=== PATIENT | female | born 1965 | race Caucasian/White ===

== ENCOUNTER 2018-06-13 11:57 | Inpatient (IN) | payer SELFPAY ==
[~2018-06-13] VITALS: Ht 149.9 cm; Wt 37.4 kg
--- OUTSIDE RECORDS SUMMARY | 2018-06-13 12:00 | XMS REPORT ---
Author Author [facility] Address Unknown Phone Unavailable Care Team Providers Care Buyer Planner Name Role Phone Unavailable Unavailable Payers Payer Name Policy Type Policy Number Effective Date Expiration Date Problems This patient has no known problems. Allergies, Adverse Reactions, Alerts Allergy Name Allergy Type Status Severity Reaction(s) Onset Date Inactive Date Treating Clinician Comments codeine DA Active 2017-10-29 00:00:00 codeine DA Active SV 2016-03-29 00:00:00 Medications This patient has no known medications. Encounters Start Date/Time End Date/Time Encounter Type Admission Type Attending Clinicians [facility] Facility Care Department Encounter ID 2016-12-29 00:00:00 2016-12-29 00:00:00 Outpatient [facility] [id number]
[2018-06-13] MEDS ORDERED: SODIUM CHLORIDE 0.9% 1000ML 1,000 ML IV STA (12:48)
[2018-06-13] MEDS ORDERED: ONDANSETRON HCL INJ 2MG/ML 2ML 2 MG/ML VIAL IV NR (13:00)
--- NOTE | 2018-06-13 13:03 | NUR ---
RADIOLOGY AT BEDSIDE AT THIS TIME FOR CXR.
[2018-06-13 13:30] LABS: BASOPHILS # (AUTO) 0.1 (0.0-0.1); BASOPHILS % 1.2 % (0.0-1.0); EOSINOPHILS # (AUTO) 0.1 (0.0-0.4); EOSINOPHILS % 1.4 % (0.0-6.0); HEMATOCRIT 41.9 % (34.2-44.1); HEMOGLOBIN 15.4 g/dL (12.0-16.0); LYMPHOCYTES % 16.5 % (18.0-39.1); MEAN CORPUSCULAR HEMOGLOBIN 35.7 pg (28-32); MEAN CORPUSCULAR HGB CONC 36.8 g/dL (31-35); MEAN CORPUSCULAR VOLUME 97.2 fL (81-99); MONOCYTES # (AUTO) 1.1 (0.2-0.8); MONOCYTES % 18.2 % (4.4-11.3); NEUTROPHILS # (AUTO) 3.6 (2.1-6.9); NEUTROPHILS % 62.4 % (38.7-80.0); PLATELET COUNT 142 x10e3/uL (140-360); RED BLOOD COUNT 4.31 x10e6/uL (3.6-5.1); RED CELL DISTRIBUTION WIDTH 17.3 % (11.7-14.4)
[2018-06-13 13:33] LABS: INR 1.03
[2018-06-13 13:34] LABS: PARTIAL THROMBOPLASTIN TIME 31.9 seconds (23.8-35.5)
--- NOTE | 2018-06-13 13:39 | Diagnostic Imaging Report ---
EXAMINATION: CHEST SINGLE (PORTABLE) INDICATION: Abdominal pain. COMPARISON: None FINDINGS: TUBES and LINES: None. LUNGS: Lungs are well inflated. Mild patchy left basilar opacity, likely atelectasis. There is no evidence of pneumonia or pulmonary edema. PLEURA: No pleural effusion or pneumothorax. HEART AND MEDIASTINUM: The cardiomediastinal silhouette is unremarkable. BONES AND SOFT TISSUES: No acute osseous abnormality. UPPER ABDOMEN: No free air under the diaphragm. IMPRESSION: No acute radiographic abnormality. Signed by: Dr. Praveena Palmer MD on 06/13/2018 1:35 PM
[2018-06-13 13:42] LABS: AMPHETAMINES SCREEN,URINE NEGATIVE (NEGATIVE); BENZODIAZEPINES SCREEN,URINE NEGATIVE (NEGATIVE); PHENCYCLIDINE SCREEN,URINE NEGATIVE (NEGATIVE)
[2018-06-13 13:43] LABS: CLARITY,URINE CLOUDY (CLEAR); COLOR,URINE ORANGE (YELLOW)
[2018-06-13 13:44] LABS: BILIRUBIN,URINE 3+ (NEGATIVE); KETONES,URINE NEGATIVE (NEGATIVE); LEUKOCYTE ESTERASE ,URINE TRACE (NEGATIVE); NITRITE,URINE POSITIVE (NEGATIVE); PROTEIN,URINE DIPSTICK NEGATIVE (NEGATIVE); URINE UROBILINOGEN 4 mg/dL (0.2 - 1)
[2018-06-13 13:47] LABS: ALANINE AMINOTRANSFERASE 88 IU/L (0-55); ALBUMIN 3.3 g/dL (3.5-5.0); ALBUMIN/GLOBULIN RATIO 1.1 (0.8-2.0); ALKALINE PHOSPHATASE 159 IU/L (40-150); AMYLASE 56 U/L (25-125); ANION GAP 15.2 mmol/L (8-16); BLOOD UREA NITROGEN 5 mg/dL (7-26); BUN/CREATININE RATIO 8 (6-25); CALCIUM 9.9 mg/dL (8.4-10.2); CARBON DIOXIDE 28 mmol/L (22-29); CHLORIDE 97 mmol/L (98-107); CREATINE KINASE 21 IU/L (29-168); CREATININE, SERUM 0.65 mg/dL (0.57-1.11); EST GLOMERULAR FILTRATION RATE > 60 ML/MIN (60-); GLUCOSE 94 mg/dL (74-118); LIPASE 75 U/L (8-78); MAGNESIUM 1.4 MG/DL (1.3-2.1); SODIUM 138 mmol/L (136-145)
[2018-06-13 13:48] LABS: BACTERIA,URINE MANY /HPF; EPITHELIAL CELLS,URINE MODERATE /LPF; RBC,URINE 0-5 /HPF (0-5); WBC,URINE (MAN) 21-50 /HPF (0-5)
[2018-06-13 13:52] LABS: POTASSIUM 2.2 mmol/L (3.5-5.1)
[2018-06-13] MEDS ORDERED: POTASSIUM CHLORIDE 20 MEQ TAB CR PO NR (14:00)
[2018-06-13 14:28] LABS: ACETAMINOPHEN < 3 ug/mL (10-30); SALICYLATE < 5.0 mg/dL (0-30)
[2018-06-13] MEDS ORDERED: POTASSIUM CHLORIDE 20MEQ/15ML UDC PO NR (14:45)
[2018-06-13] MEDS: PIPER-TAZ 3.375 GM 50 ML IV SCH ×2 (15:00→22:06)
--- NOTE | 2018-06-13 15:07 | Diagnostic Imaging Report ---
EXAM: CT Abdomen and Pelvis WITH contrast INDICATION: Jaundice, right upper quadrant abdominal pain. COMPARISON: None. TECHNIQUE: Abdomen and pelvis were scanned utilizing a multidetector helical scanner from the lung base to the pubic symphysis after administration of IV contrast. Coronal and sagittal reformations were obtained. Routine protocol was performed. Scan was performed when during portal venous phase. IV CONTRAST: 100 cc of Isovue-370. ORAL CONTRAST: Water COMPLICATIONS: None RADIATION DOSE: Total DLP: 164.3 mGy*cm Dose modulation, iterative reconstruction, and/or weight based adjustment of the mA/kV was utilized to reduce the radiation dose to as low as reasonably achievable. FINDINGS: LINES and TUBES: None. LOWER THORAX: Severe emphysematous changes at the lung bases. HEPATOBILIARY: Severe diffuse hepatic steatosis. Hepatomegaly. No evidence of focal lesion. No biliary ductal dilation. GALLBLADDER: No radio-opaque stones or sludge. No wall thickening. SPLEEN: No splenomegaly. PANCREAS: No focal masses or ductal dilatation. ADRENALS: No adrenal nodules KIDNEYS/URETERS: Kidneys enhance symmetrically. No evidence of hydronephrosis, solid mass, or stone. GI TRACT: No evidence of wall thickening or distension. Appendix is unremarkable in appearance and abuts the inferior margin of the liver (coronal series 301, image 32; axial series 2, image 41). PELVIC ORGANS/BLADDER: Status post hysterectomy. LYMPH NODES: No lymphadenopathy. VESSELS: There is a large splenorenal shunt. Scattered atherosclerotic changes in the abdominal aorta and branch vessels. PERITONEUM / RETROPERITONEUM: No free air or fluid. BONES AND SOFT TISSUES: Unremarkable. CONCLUSION: Hepatomegaly with severe diffuse hepatic steatosis. Large splenorenal shunt, which may be seen in portal hypertension. Severe emphysematous changes of the lung bases. Status post hysterectomy. Signed by: Dr. Praveena Palmer MD on 06/13/2018 3:03 PM
[2018-06-13] MEDS ORDERED: SODIUM CHLORIDE 0.9% 50ML 50 ML ONE (15:09)
[2018-06-13] MEDS ORDERED: IOPAMIDOL 370 MG/ML 200 ML INFUS..BTL INJ ONE (15:09)
[2018-06-13] MEDS ORDERED: KCL 20MEQ/.9 SOD CHL 1,000 ML IV ONE (16:00)
[2018-06-13] MEDS: POTASSIUM CHLORIDE 10MEQ/100ML 100 ML IV SCH ×4 (16:14→19:09)
[2018-06-13 20:35] VITALS: BP 103/68
[2018-06-13 21:00] VITALS: BP 103/68
[2018-06-13 21:24] VITALS: BP 103/68
--- NOTE | 2018-06-13 21:38 | Diagnostic Imaging Report ---
MRCP CPT code: 69811 History: Acute jaundice, elevated transaminases Comparison: CT abdomen/pelvis 06/13/2018. Technique: Multiplanar, multisequence images of the abdomen were obtained per MRCP protocol. 3D volume rendered reformation images of the biliary tree were performed. No intravenous gadolinium was administered. Findings: Several pulse sequences are motion degraded. Biliary tree: No intrahepatic biliary ductal dilatation. Common bile duct measures 4 mm in diameter and tapers as it approaches the ampulla. No beading or narrowing. No intraluminal filling defect. The cystic duct is poorly visualized. Pancreas duct: Normal in diameter throughout its course and is normal in morphology. Liver: Severe steatosis. Calculated hepatic fat percentage is 34.3%. No evidence of mass. The right lobe measures 18 cm in length. Liver capsule is smooth. Gallbladder: Present. No evidence of gallstone or mural thickening. No pericholecystic inflammation. Spleen: Normal size and signal. No mass. Pancreas: Normal T1 and T2 signal without mass. Kidneys: No hydronephrosis. No cortical mass. Adrenal glands: No mass Lymph nodes: No enlarged abdominal or retroperitoneal lymph nodes. Vasculature: Portal vein is normal in diameter. Large splenorenal shunt in the left upper quadrant. Bowel: Stomach and visualized portions of the small bowel and large bowel are normal in diameter with normal wall thickness. Lung bases: Clear. Bones: Normal marrow signal. No focal osseous lesions. Soft tissues: Unremarkable IMPRESSION: 1. Severe steatosis. Steatohepatitis is suspected. Hepatomegaly. No MRI evidence of cirrhosis. No hepatic mass. 2. No biliary ductal dilatation. No pancreas ductal dilatation. No pancreas mass. 3. Normal-sized spleen with large splenorenal shunt. No evidence of portal hypertension on provided images. 4. No gallbladder abnormalities. Thank you for your referral. Signed by: Dr. Fallon Cordova MD on 06/13/2018 9:35 PM
--- NOTE | 2018-06-13 22:10 | NUR ---
Report received from ER nurse Rogelio. Patient admitted in unit by stretcher. Patient alert/oriented x3. Denied pain and no SOB. Respiration even and unlabored. Head to toe assessment completed. No skin breakdown noted. Family in the room. Parent instructed to call fro help as needed. Bed in lower position,locked, Call marin within reach. Will continue to monitor.
[2018-06-14] VITALS (8 sets, daily range): BP systolic 91–117; BP diastolic 61–79
[2018-06-14] MEDS: PIPER-TAZ 3.375 GM 50 ML IV SCH ×4 (03:20→20:34)
[2018-06-14 05:30] LABS: ALANINE AMINOTRANSFERASE 65 IU/L (0-55); ALBUMIN 2.2 g/dL (3.5-5.0); ALKALINE PHOSPHATASE 116 IU/L (40-150); ANION GAP 13.1 mmol/L (8-16); BLOOD UREA NITROGEN < 5 mg/dL (7-26); CALCIUM 8.1 mg/dL (8.4-10.2); CARBON DIOXIDE 22 mmol/L (22-29); CHLORIDE 109 mmol/L (98-107); CREATININE, SERUM 0.59 mg/dL (0.57-1.11); EST GLOMERULAR FILTRATION RATE > 60 ML/MIN (60-); GLUCOSE 73 mg/dL (74-118); LIPASE 45 U/L (8-78); POTASSIUM 3.1 mmol/L (3.5-5.1); SODIUM 141 mmol/L (136-145)
[2018-06-14 05:37] LABS: BUN/CREATININE RATIO 8 (6-25)
[2018-06-14 06:42] LABS: BASOPHILS # (AUTO) 0.1 (0.0-0.1); BASOPHILS % 1.3 % (0.0-1.0); EOSINOPHILS # (AUTO) 0.1 (0.0-0.4); EOSINOPHILS % 2.1 % (0.0-6.0); HEMATOCRIT 34.2 % (34.2-44.1); HEMOGLOBIN 12.4 g/dL (12.0-16.0); LYMPHOCYTES # (AUTO) 1.1 (1.0-3.2); LYMPHOCYTES % 20.8 % (18.0-39.1); MEAN CORPUSCULAR HEMOGLOBIN 36.4 pg (28-32); MEAN CORPUSCULAR HGB CONC 36.3 g/dL (31-35); MEAN CORPUSCULAR VOLUME 100.3 fL (81-99); MONOCYTES # (AUTO) 0.9 (0.2-0.8); MONOCYTES % 17.2 % (4.4-11.3); NEUTROPHILS # (AUTO) 3.1 (2.1-6.9); NEUTROPHILS % 58.2 % (38.7-80.0); PLATELET COUNT 123 x10e3/uL (140-360); RED BLOOD COUNT 3.41 x10e6/uL (3.6-5.1); RED CELL DISTRIBUTION WIDTH 18.4 % (11.7-14.4)
[2018-06-14] MEDS ORDERED: POTASSIUM CHLORIDE 20 MEQ TAB CR PO NR ×2 (07:15→14:00)
--- NOTE | 2018-06-14 08:00 | NUR ---
Head: Atraumatic, normocephalic EENT: clear/ no obstruction, no drainage, throat patent Cardiac: RRR, S1, S2 Normal, no S3, S4. Resp: LS with scattered bilateral wheezing, RR uneven Abd: BS dim, abd round, Soft, Non-distended, non tender. Extremities: DP pulse faint +1 and posterior tibialis pulse faint +1 Skin: Warm, moist, no lesions, no wounds, jaundiced : Unremarkable, Able to make needs known, call light within reach, will monitor
[2018-06-14] MEDS ORDERED: POTASSIUM CHLORIDE 20 MEQ TAB CR PO SCH (10:00)
--- NOTE | 2018-06-14 11:41 | NUR ---
Orders in place to upgrade diet by Dr. Thierry Rubio from clears to Full liquid, will monitor
--- NOTE | 2018-06-14 14:00 | History and Physical ---
CHIEF COMPLAINT: Jaundice. 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 The patient's who is at bedside reports that she has been very weak over the last several days, noticed that her skin was very yellow in color as well as her eyes and brought her in for further evaluation. On further investigation, the patient apparently was a chronic alcoholic, who was drinking several alcoholic drinks daily for several years, but of note over the last two years she states that she is a social drinker only drinks mainly on holidays. She denies having any recent drink over the last several months. The patient denies any abdominal pain, nausea, or vomiting. Does endorse some weight loss at home. The patient is seen at bedside, currently doing well with no other issues at this time. GI has been consulted for further evaluation. The patient's total bilirubin level was elevated. REVIEW OF SYSTEMS: Pertinent positives: Jaundice, scleral icterus. Pertinent negatives: Denies any chest pain, palpitation, nausea, vomiting, diarrhea, dysuria, hematuria, frequency, urgency, lightheadedness, dizziness, abdominal pain, headaches, shortness of breath, cough, congestion, fever, or any other complaints. The rest of the 14-point review of systems have been reviewed with the patient and are negative. ALLERGIES: CODEINE. HOME MEDICATIONS: None. PAST MEDICAL HISTORY: Chronic alcoholic and drinks alcohol daily, of note social drinker now over the last two years is what she reports, last drink was back in February. PAST SURGICAL HISTORY: Reports none. FAMILY HISTORY: Hypertension and diabetes. SOCIAL HISTORY: Denies drugs or any current smoking, but is a chronic alcoholic, of note last drink was back in February, but she used to drink daily for several years. PHYSICAL EXAMINATION: VITAL SIGNS: Temperature is 99.1, pulse 84, respiratory rate 17, blood pressure 108/76, and pulse ox 99% on room air. GENERAL: Not in acute distress. Alert and oriented x3. Cooperative on examination. She is very jaundiced on examination. HEENT: Head is normocephalic and atraumatic. Eyes; pupils are equal, round, and reactive to light bilaterally. Extraocular movements are intact bilaterally. Throat, no evidence of erythema or exudates in the posterior pharynx. Has poor dentition. NECK: Supple. Good range of motion. PULMONARY: Clear to auscultation bilaterally. No wheezing, no rales, no rhonchi, no crackles appreciated. CARDIOVASCULAR: Positive S1, S2. No murmurs, rubs, or gallops appreciated. ABDOMEN: Soft, nondistended, and nontender to palpation. Bowel sounds present. She is very jaundiced on examination. MUSCULOSKELETAL: Strength is 5/5 throughout. No evidence of any muscle deficits on examination. No weakness appreciated. NEUROLOGICAL: Cranial nerves 2 through 12 grossly intact. No evidence of any neurological deficits on exam. SKIN: Intact. Warm to touch. Good cap refill. PSYCHIATRIC: Normal affect and mood. EXTREMITIES: No edema. Good range of motion throughout. LAB FINDINGS: Show white count is 5.2, hemoglobin 12.4, hematocrit is 34, and platelets of 123. Coagulation; PT 14, INR 1, PTT 31.9. Chemistry; sodium 141, potassium 3.1, chloride 109, bicarb 22, anion gap of 13, BUN is less than 5, creatinine is 0.59, glucose is 73. Lactic acid 14, but normal at this facility. Total bilirubin on admission was 20.6, now 17.1; AST 171, now 133; ALT 88, now 65; alkaline phosphatase 160. Troponin was negative. Total bilirubin is 4.5. Albumin was 2.2, lipase is 45, amylase is 56. Urinalysis has a 3+ bilirubin, nitrite positive, rbc 0-5, wbc 21-50. Toxicology screen; acetaminophen negative, salicylate negative. Urine drug screen was negative. Hepatitis panel is pending. MICROBIOLOGY: Blood and urine cultures are pending. IMAGING STUDIES: MRCP performed shows severe steatosis with steatohepatitis suspected. Hepatomegaly. No biliary ductal dilatation. No pancreatic ductal dilatation. No pancreas mass. Normal-sized spleen with large splenorenal shunt. No evidence of portal hypertension on provided images. No gallbladder abnormality. Chest x-ray was found to be negative. CT abdomen and pelvis consistent with hepatomegaly with severe diffuse hepatic steatosis with large splenorenal shunt likely to be portal hypertension. Severe emphysematous changes at the lung bases. Status post hysterectomy. IMPRESSION: 1. Jaundice with elevated total bilirubin likely due to alcohol abuse. 2. Hepatic steatosis likely secondary to alcohol abuse. 3. Probable urinary tract infection. 4. Hypokalemia. PLAN: Imaging studies were performed, shows consistent with hepatic steatosis, but no evidence of any obstruction. It seems that the patient's underlying jaundice is from alcohol abuse. Hepatitis panel is pending, GI was consulted. Potassium was aggressively replaced. She is on IV antibiotics for UTI and we will monitor urine culture. We are going to resume same home medications. The patient reports that she is very noncompliant as well as her reports that she is noncompliant with any medical care. She cannot recall the last time she saw a physician except for history of a hysterectomy that was performed more than a year and a half ago. We will monitor for any evidence of any alcohol withdrawal, but endorses her last alcohol drink was back in February of this year. I will put her on Lovenox for DVT prophylaxis. Get a.m. labs. MD CARLEEN Farris/URI /[id number]
--- NOTE | 2018-06-14 16:02 | NUR ---
GAVE PACKET OF INFORMATION WITH COMMUNITY RESOURCES FOR ASSISTANCE WITH LOW TO NO INCOME TO PATIENT. RESOURCES THAT PATIENT MAY BE ABLE TO FOLLOW UP UPON DISCHARGE. PT EDUCATED ON EACH RESOURCE AND UNDERSTANDING HOW TO FOLLOW UP TO SEE IF QUALIFIED FOR EACH RESOURCE.
[2018-06-14] MEDS: ENOXAPARIN 30 MG/0.3 ML SYR SC SCH (17:06)
--- NOTE | 2018-06-14 17:06 | NUR ---
Nutrition Intervention Note RD Recommendation(s) for Physician: - When medically feasible ADAT to AMBROSE - Recommend Ensure Enlive BID when diet advanced - Recommend MVI with mineral once daily - Pt meets criteria for moderate protein calorie malnutrition Plan of Care: RD following, monitoring for tolerance and adequacy Nutrition reason for involvement: Nutrition Risk Trigger- MST score RD Assessment 06/14: 53 YOF admitted for hypokalemia, jaundice, UTI, and suspected hepatic steatosis with hx of chronic ETOH use and resected uterine tumor with no follow up care post op per MD notes. Pt seen today per MST score. Pt reports that she has never been a big eater and that she is prescribed to drink Boost TID at home, but hasn't been drinking more than 1 per day infrequently. Pt denies chronic N/V/C/D. Pt reports UBW of 85# 6 mo ago, pt with 17% wt loss in 6 mo. Pt receptive to Ensure Enlive when diet advanced, flavor preferences noted in [employer]. Will monitor and continue to follow. Principal Problems/Diagnoses: hypokalemia, jaundice, UTI, and suspected hepatic steatosis PMH:chronic ETOH use and resected uterine tumor GI:LBM 06/14 Skin:intact, jaundice Labs: 06/14: Na 141, K 3.1, BUN <5, Cr 0.59, Gluc 73 Meds: abx, k-dur, zofran Ht: 59 in Wt: 70 lb BMI: 14.1 IBW: 95 lb Malnutrition Evaluation (06/14/18) The patient meets criteria for MODERATE protein-calorie malnutrition. Energy intake: <75% of estimated energy requirements for >3 months Weight loss: >10% in 6 months (Chronic) Fat loss: Mild Muscle loss: Mild Supporting Evidence: Fluid accumulation: None Functional status: Not assessed Nutrition Prescription (Diet Order): Clear Liquids Estimated Nutritional Needs: 955-1114 calories/day (30-35 kcal/kg CBW) 32-48 g protein/day (1-1.5 g pro/kg CBW) Diet Adequacy: Not meeting calorie needs, Not meeting protein needs Diet Education Needs Assessment: Diet education not indicated, patient on temporary/transition diet. Nutrition Care Level: Moderate Nutrition Diagnosis: PES Goal: Patient will meet 75-100% of estimated needs by follow up Progress: N/A Interventions: Fluid, fiber modified diet, Commercial beverage, Collaboration with other providers Monitoring/Evaluation: Total energy intake, Total protein intake, Modified diet, Liquid supplement, Weight change Signed: Lida Singleton RD, LD, CNSC
--- NOTE | 2018-06-14 18:23 | NUR ---
Patient had full liquid diet and tolerated well, no c/o nausea, vomiting, and VSS, denies any pains, will monitor.
[2018-06-15] VITALS (9 sets, daily range): BP systolic 90–121; BP diastolic 61–81
--- NOTE | 2018-06-15 00:57 | NUR ---
round the patient at this time.
[2018-06-15] MEDS: PIPER-TAZ 3.375 GM 50 ML IV SCH (03:25)
[2018-06-15 05:47] LABS: BASOPHILS # (AUTO) 0.1 (0.0-0.1); BASOPHILS % 1.1 % (0.0-1.0); EOSINOPHILS # (AUTO) 0.1 (0.0-0.4); EOSINOPHILS % 2.6 % (0.0-6.0); HEMATOCRIT 34.6 % (34.2-44.1); HEMOGLOBIN 12.6 g/dL (12.0-16.0); LYMPHOCYTES # (AUTO) 0.9 (1.0-3.2); MEAN CORPUSCULAR HEMOGLOBIN 36.7 pg (28-32); MEAN CORPUSCULAR HGB CONC 36.4 g/dL (31-35); MEAN CORPUSCULAR VOLUME 100.9 fL (81-99); MONOCYTES % 19.3 % (4.4-11.3); NEUTROPHILS # (AUTO) 3.3 (2.1-6.9); NEUTROPHILS % 60.4 % (38.7-80.0); PLATELET COUNT 138 x10e3/uL (140-360); RED BLOOD COUNT 3.43 x10e6/uL (3.6-5.1); RED CELL DISTRIBUTION WIDTH 18.8 % (11.7-14.4)
[2018-06-15 06:15] LABS: ALANINE AMINOTRANSFERASE 69 IU/L (0-55); ALBUMIN 2.3 g/dL (3.5-5.0); ALKALINE PHOSPHATASE 119 IU/L (40-150); ANION GAP 9.5 mmol/L (8-16); BLOOD UREA NITROGEN < 5 mg/dL (7-26); CARBON DIOXIDE 29 mmol/L (22-29); CHLORIDE 101 mmol/L (98-107); CREATININE, SERUM 0.65 mg/dL (0.57-1.11); EST GLOMERULAR FILTRATION RATE > 60 ML/MIN (60-); GLUCOSE 81 mg/dL (74-118); SODIUM 135 mmol/L (136-145)
[2018-06-15 06:16] LABS: BUN/CREATININE RATIO 8 (6-25); POTASSIUM 4.5 mmol/L (3.5-5.1)
[2018-06-15 07:02] LABS: FOLATE 5.8 ng/mL (7.0-15.4)
--- NOTE | 2018-06-15 07:06 | NUR ---
Report given to AM RN, walking round done.
[2018-06-15] MEDS: CEFTRIAXONE SOD 1 GM/NS 50 ML 50 ML IV SCH (09:50)
--- NOTE | 2018-06-15 10:08 | NUR ---
Rounds by attending and patient started on steroids, Labs still elevated and some more labs ordered by GI, will monitor
[2018-06-15] MEDS: METHYLPREDNISOLONE SOD SUCC 40 MG/ML VIAL 1ML IV SCH ×2 (11:44→16:41)
--- NOTE | 2018-06-15 13:12 | NUR ---
Orders per DR. Marti to transfer patient to [facility] floor and orders for Tele in place
--- NOTE | 2018-06-15 13:20 | Progress Note ---
DATE: 06/15/2018 Medicine Progress Note SUBJECTIVE: The patient's was increased. She looks more jaundiced today on examination. She is tolerating diet well. LABORATORY DATA: Lab findings show white count 5.3, hemoglobin 12.3, hematocrit is 35, platelets of 138. Chemistry; sodium 135, potassium 4.5, chloride 101, bicarb 29, anion gap of 9.5, BUN is 5, creatinine 0.65, glucose 81, calcium is 9, total bilirubin went up to 22.7, direct bilirubin is 7.8. LFTs were elevated. Total protein 4.7. Albumin 2.3. Alpha-fetoprotein is pending. Folate level 5.8, vitamin B12 759. MICROBIOLOGY: Urine culture positive for E coli and enterococcus. Blood cultures, no growth to-date. IMAGING STUDIES: None. PHYSICAL EXAMINATION: VITAL SIGNS: Temperature 98.8, pulse 89, respiratory rate is 16, blood pressure 106/70, pulse ox 100% on room air. GENERAL: Not in acute distress. Alert and oriented x3. Cooperative on examination. The patient was jaundiced. HEENT: Head is normocephalic, atraumatic. Eyes, pupils are equal, round, and reactive to light bilaterally. Extraocular movements are intact bilaterally. Throat, no evidence of any erythema or exudates in the posterior pharynx. Has poor dentition. NECK: Supple. Good range of motion. PULMONARY: Clear to auscultation bilaterally. No wheezing, no rales, no rhonchi, and no crackles appreciated. CARDIOVASCULAR: Positive S1, S2. No murmurs, rubs, or gallops appreciated. ABDOMEN: Soft, nondistended, and nontender to palpation. Bowel sounds present. MUSCULOSKELETAL: Strength is 5/5 throughout. No evidence of any muscle deficits on examination. No weakness appreciated. NEUROLOGIC: Cranial nerves 2 through 12 are grossly intact. No evidence of any neurological deficits on exam. SKIN: Intact. Warm to touch. Good cap refill. PSYCHIATRIC: Normal affect and mood. EXTREMITIES: No edema. Good range of motion throughout. IMPRESSION: 1. Jaundice with elevated total bilirubin, likely secondary to alcohol abuse. 2. Hepatic steatosis likely secondary to alcohol abuse. 3. Urinary tract infection. 4. Hypokalemia, resolved. PLAN: At this time, her total bilirubin has increased. We will start her on Solu-Medrol 40 mg IV q.8 hours. Consult with GI. The patient is tolerating diet well. Change antibiotics Zosyn to IV Rocephin, that is now back with sensitivities. Lovenox for DVT prophylaxis. Discussed drinking cessation. Get a.m. labs. We will monitor very closely. MD CARLEEN Farris/URI /[id number]
--- NOTE | 2018-06-15 13:36 | NUR ---
Received patient via wheelchair from [facility]. AAOX3 to time, person, place. Respirations even and unlabored. Telemetry #10 SR 75. Oriented patient to room. Instructed to use call light for assistance. Will continue to monitor.
--- NOTE | 2018-06-15 13:38 | NUR ---
Report given to EDDIE Mcpherson and patient transferred to [facility] at this time.
[2018-06-15] MEDS: ENOXAPARIN 30 MG/0.3 ML SYR SC SCH (16:41)
--- NOTE | 2018-06-15 18:47 | NUR ---
Resting in bed. at bedside. No s/s of acute distress noted. Report to be given to oncoming nurse.
[2018-06-15] MEDS: ONDANSETRON HCL INJ 2MG/ML 2ML 2 MG/ML VIAL IV PRN (22:01)
[2018-06-16] VITALS (9 sets, daily range): BP systolic 96–138; BP diastolic 54–82
[2018-06-16] MEDS: METHYLPREDNISOLONE SOD SUCC 40 MG/ML VIAL 1ML IV SCH ×2 (01:50→09:20)
[2018-06-16] MEDS ORDERED: PANTOPRAZOLE SOD 40 MG TABEC PO ONE (02:15)
[2018-06-16 06:14] LABS: BASOPHILS % 0.1 % (0.0-1.0); HEMATOCRIT 36.7 % (34.2-44.1); HEMOGLOBIN 13.6 g/dL (12.0-16.0); LYMPHOCYTES # (AUTO) 0.4 (1.0-3.2); LYMPHOCYTES % 4.7 % (18.0-39.1); MEAN CORPUSCULAR HEMOGLOBIN 36.8 pg (28-32); MEAN CORPUSCULAR HGB CONC 37.1 g/dL (31-35); MEAN CORPUSCULAR VOLUME 99.2 fL (81-99); MONOCYTES # (AUTO) 0.6 (0.2-0.8); MONOCYTES % 7.7 % (4.4-11.3); NEUTROPHILS # (AUTO) 6.4 (2.1-6.9); NEUTROPHILS % 86.6 % (38.7-80.0); PLATELET COUNT 152 x10e3/uL (140-360); RED CELL DISTRIBUTION WIDTH 18.6 % (11.7-14.4)
[2018-06-16 06:22] LABS: ALANINE AMINOTRANSFERASE 81 IU/L (0-55); ALBUMIN 2.3 g/dL (3.5-5.0); ALBUMIN/GLOBULIN RATIO 0.8 (0.8-2.0); ALKALINE PHOSPHATASE 136 IU/L (40-150); ANION GAP 13.6 mmol/L (8-16); BLOOD UREA NITROGEN 7 mg/dL (7-26); BUN/CREATININE RATIO 11 (6-25); CALCIUM 8.9 mg/dL (8.4-10.2); CARBON DIOXIDE 28 mmol/L (22-29); CHLORIDE 97 mmol/L (98-107); CREATININE, SERUM 0.65 mg/dL (0.57-1.11); EST GLOMERULAR FILTRATION RATE > 60 ML/MIN (60-); GLUCOSE 142 mg/dL (74-118); POTASSIUM 3.6 mmol/L (3.5-5.1); SODIUM 135 mmol/L (136-145)
[2018-06-16] MEDS ORDERED: SODIUM CHLORIDE 0.9% 250ML 250 ML ONE (07:03)
[2018-06-16] MEDS: ONDANSETRON HCL INJ 2MG/ML 2ML 2 MG/ML VIAL IV PRN (07:05)
[2018-06-16] MEDS: PANTOPRAZOLE SOD 40 MG TABEC PO SCH (07:05)
[2018-06-16] MEDS: CEFTRIAXONE SOD 1 GM/NS 50 ML 50 ML IV SCH (08:00)
[2018-06-16] MEDS ORDERED: IBUPROFEN 400 MG TAB PO PRN ×2 (08:45→09:45)
[2018-06-16] MEDS ORDERED: PROMETHAZINE 12.5MG/ NACL 0.9% 12.5 MG/50 ML BAG IV PRN ×2 (08:45→09:45)
--- NOTE | 2018-06-16 12:00 | Progress Note ---
DATE: 06/16/2018 Medicine Progress Note SUBJECTIVE: The patient continues to look even more jaundiced today than ever. Total bilirubin has continued to climb with no improvement. On reading GI's note, it seems like he is in agreement of thinking of possible needing a liver transplant and will likely be transferred to the [facility]. OBJECTIVE: VITAL SIGNS: Temperature 96.6, pulse 106, respiratory rate 17, blood pressure 138/82, and pulse ox 97% on room air. GENERAL: Not in acute distress. Alert and oriented x3. Cooperative on examination. The patient looks significantly jaundiced with scleral icterus. HEENT: Head is normocephalic and atraumatic. Eyes; pupils are equal, round, and reactive to light bilaterally. Extraocular movements are intact bilaterally. Throat, no evidence of erythema or exudates in the posterior pharynx. Has poor dentition. NECK: Supple. Good range of motion. PULMONARY: Clear to auscultation bilaterally. No wheezing, no rales, no rhonchi, no crackles appreciated. CARDIOVASCULAR: Positive S1, S2. No murmurs, rubs, or gallops appreciated. ABDOMEN: Soft, nondistended, and nontender to palpation. Bowel sounds present. MUSCULOSKELETAL: Strength is 5/5 throughout. No evidence of any muscle deficits on examination. No weakness appreciated. NEUROLOGICAL: Cranial nerves II through XII grossly intact. No evidence of any neurological deficits on exam. SKIN: Intact. Warm to touch. Good cap refill. PSYCHIATRIC: Normal affect and mood. EXTREMITIES: No edema. Good range of motion throughout. LAB FINDINGS: Show white count 7.3, hemoglobin 13.6, hematocrit is 36.7, and platelets of 152. Chemistry; sodium 135, potassium 3.6, chloride 96, bicarb 28, anion gap of 13, BUN 7, creatinine is 0.65, glucose is 142, lactic acid normal, calcium is 8.9, total bilirubin now is 24.9, direct bilirubin is 11.8, AST 172, ALT 81, alkaline phosphatase 136, total protein is 5.3, albumin 2.3. Alpha fetoprotein 5.5, folate 5.8, and vitamin B12 759. MICROBIOLOGY: Blood cultures, no growth. Urine cultures, E coli and Enterococcus. IMAGING STUDIES: None. IMPRESSION: 1. Jaundice with worsening elevated total bilirubin, likely secondary to alcohol abuse. 2. Hepatic steatosis, likely secondary to alcohol abuse. 3. Urinary tract infection. 4. Hypokalemia, resolved. PLAN: At this time, her total bilirubin continues to increase and this is very very very poor prognosis in this particular case. She is on IV steroids. She is on IV antibiotics with Rocephin. According to the GI's note, he recommended possible liver transplantation. At this time, we are going to go ahead and talk with Case Management about the patient can be a candidate for transfer to the [facility] for possible need for liver transplant. We will get a.m. labs as well. Discussed plan of care with the patient, , and nursing staff at bedside. MD CARLEEN Farris/MODL /[id number]
--- NOTE | 2018-06-16 13:19 | NUR ---
ADAMARIS SPOKE TO PATIENT REGARDING TRANSFER ORDERED BY DR. Chadd TIJERINA. PATIENT STATES SHE DOES NOT HAVE ANY SOURCES OF INCOME AND WILL NOT BE ABLE TO PAY ANYTHING OUT OF POCKET AT THIS TIME. PATIENT UNDERSTANDS SHE IS VERY SICK AND NEEDING A HIGHER LEVEL OF CARE. DR. Thierry TIJERINA NOTIFIED AND SAYS TO SEE IF THERE IS ANYTHING THAT WE CAN DO TO DECREASE THE AMOUNT OF OUT OF POCKET EXPENSES FOR THE PATIENT. PATIENT VERBALLY AGREED TO BRING PATIENT W2 TO HOSPITAL SO WE CAN SEND W2 AND PACKET GIVEN TO PATIENT BY ANA. PIERRE CM AND CHARLIE MCKEE UPDATED ON CASE.
--- NOTE | 2018-06-16 13:29 | NUR ---
Nutrition Intervention Note RD Recommendation(s) for Physician: - Rec changing diet to low sodium as medically appropriate - Recommend Ensure Enlive BID to promote protein-calorie intake - Recommend MVI with mineral once daily - Pt meets criteria for moderate protein calorie malnutrition Plan of Care: RD following, monitoring for tolerance and adequacy, ONS rec Nutrition reason for involvement: RN consult ONS RD Assessment 06/16: Visited pt in the room. Pt reported poor appetite on GI soft diet. Pt also complained of some nausea and vomiting after breakfast today. Meds were given. Pt denied any chewing or swallowing difficulty. LBM 06/16. RD communicated diet rec with EDDIE Barragan. Order has been placed for Ensure BID. Will continue to monitor and follow. 06/14: 53 YOF admitted for hypokalemia, jaundice, UTI, and suspected hepatic steatosis with hx of chronic ETOH use and resected uterine tumor with no follow up care post op per MD notes. Pt seen today per MST score. Pt reports that she has never been a big eater and that she is prescribed to drink Boost TID at home, but hasn't been drinking more than 1 per day infrequently. Pt denies chronic N/V/C/D. Pt reports UBW of 85# 6 mo ago, pt with 17% wt loss in 6 mo. Pt receptive to Ensure Enlive when diet advanced, flavor preferences noted in [facility]. Will monitor and continue to follow. Principal Problems/Diagnoses: hypokalemia, jaundice, UTI, and suspected hepatic steatosis PMH: chronic ETOH use and resected uterine tumor GI: LBM 06/16 Skin:intact, jaundice Labs: 06/16: Na 135 L, Glucose 142 H 06/14: Na 141, K 3.1, BUN <5, Cr 0.59, Gluc 73 Meds: protonix, zofran Ht: 59 in Wt: 70 lb BMI: 14.1 IBW: 95 lb Malnutrition Evaluation (06/14/18) The patient meets criteria for MODERATE protein-calorie malnutrition. Energy intake: <75% of estimated energy requirements for >3 months Weight loss: >10% in 6 months (Chronic) Fat loss: Mild Muscle loss: Mild Supporting Evidence: Fluid accumulation: None Functional status: Not assessed Nutrition Prescription (Diet Order): GI soft Estimated Nutritional Needs: 955-1114 calories/day (30-35 kcal/kg CBW) 32-48 g protein/day (1-1.5 g pro/kg CBW) Diet Adequacy: Not meeting calorie needs, Not meeting protein needs Diet Education Needs Assessment: Diet education indicated. Learner(s): pt Time spent: 30mins Barriers: No barriers identified. Cultural/Language Modifications: No cultural/language modifications noted. Pt and speak Telugu. Readiness: Acceptance Method: Handouts, explanation Topics: Cirrhosis Nutrition Therapy (oral supplements, MVi w/minerals, low sodium diet, diet tips) Understanding/Compliance: Expect good understanding/compliance from pt. Will benefit from reinforcement. All questions have been answered. Nutrition Care Level: Moderate Nutrition Diagnosis: Chronic disease related malnutrition related to inadequate oral intake as evidenced by poor PO, weight loss and mild fat/ muscle loss. Goal: Patient will meet 75-100% of estimated needs by follow up Progress: N/A Interventions: Fluid, modified diet, Commercial beverage, Collaboration with other providers Monitoring/Evaluation: Total energy intake, Total protein intake, Modified diet, Liquid supplement, Weight change Signed: Yany Durbin, MS, RD, LD
--- NOTE | 2018-06-16 13:52 | NUR ---
ADAMARIS CALLED [facility] @ [address] [place] [address]. [place], [place] TO INITIATE TRANSFER. ADAMARIS SPOKE TO DILL[facility]. PATIENT TRANSFER INITIATED AND FACESHEET SENT TO TRANSFER CENTER @ FAX: [phone] REQUESTED. PER DILL[facility] NO OTHER INFORMATION NEEDED AT THIS TIME. PIERRE. ADAMARIS AND RAFI GUERRA NOTIFIED. Addendum: 06/16/18 at 1356 by Jolanta Amos CM TRANSFER CENTER NUMBER: [phone]
[2018-06-16] MEDS ORDERED: ONDANSETRON HCL 4 MG ORAL DISINTEGRATING TAB PO PRN (14:15)
[2018-06-16] MEDS: ENOXAPARIN 30 MG/0.3 ML SYR SC SCH (16:15)
--- NOTE | 2018-06-16 18:40 | NUR ---
Spoke to Flaco Patton from [facility] admissions/transfer office. States "there is no doctor who can take patient at this time" Tia RN ([employer]) made aware of message.
--- NOTE | 2018-06-16 19:13 | NUR ---
Report given to oncoming nurse of patient's status. No s/s of acute distress noted.
[2018-06-17 00:58] VITALS: BP 118/69
[2018-06-17 05:42] VITALS: BP 109/64
[2018-06-17 05:42] LABS: BASOPHILS % 0.2 % (0.0-1.0); EOSINOPHILS % 0.2 % (0.0-6.0); HEMATOCRIT 36.1 % (34.2-44.1); HEMOGLOBIN 13.3 g/dL (12.0-16.0); LYMPHOCYTES # (AUTO) 1.2 (1.0-3.2); LYMPHOCYTES % 12.1 % (18.0-39.1); MEAN CORPUSCULAR HEMOGLOBIN 36.5 pg (28-32); MEAN CORPUSCULAR HGB CONC 36.8 g/dL (31-35); MEAN CORPUSCULAR VOLUME 99.2 fL (81-99); MONOCYTES # (AUTO) 1.6 (0.2-0.8); MONOCYTES % 15.6 % (4.4-11.3); NEUTROPHILS # (AUTO) 7.3 (2.1-6.9); NEUTROPHILS % 71.1 % (38.7-80.0); PLATELET COUNT 175 x10e3/uL (140-360); RED BLOOD COUNT 3.64 x10e6/uL (3.6-5.1); RED CELL DISTRIBUTION WIDTH 19.5 % (11.7-14.4)
[2018-06-17 06:12] LABS: ALANINE AMINOTRANSFERASE 75 IU/L (0-55); ALBUMIN 2.2 g/dL (3.5-5.0); ALBUMIN/GLOBULIN RATIO 0.9 (0.8-2.0); ALKALINE PHOSPHATASE 134 IU/L (40-150); ANION GAP 11.1 mmol/L (8-16); BLOOD UREA NITROGEN 11 mg/dL (7-26); BUN/CREATININE RATIO 18 (6-25); CALCIUM 9.1 mg/dL (8.4-10.2); CARBON DIOXIDE 34 mmol/L (22-29); CHLORIDE 98 mmol/L (98-107); EST GLOMERULAR FILTRATION RATE > 60 ML/MIN (60-); GLUCOSE 85 mg/dL (74-118); POTASSIUM 3.1 mmol/L (3.5-5.1); SODIUM 140 mmol/L (136-145)
--- NOTE | 2018-06-17 06:45 | NUR ---
talk to dr. diaz about K 3.1, orders received.
--- NOTE | 2018-06-17 07:00 | NUR ---
BEDSIDE SHIFT CHANGE REPORT FROM NIGHT RN. PT DENIES NEEDS AT THIS TIME.
[2018-06-17] MEDS ORDERED: POTASSIUM CHLORIDE 20 MEQ TAB CR PO NR ×2 (07:30→10:00)
[2018-06-17] MEDS: PANTOPRAZOLE SOD 40 MG TABEC PO SCH (08:13)
[2018-06-17 08:35] VITALS: BP 120/75
[2018-06-17 08:44] LABS: LYMPHOCYTES % (MANUAL) 13 % (19-48); MONOCYTES % (MANUAL) 10 % (3.4-9.0); NEUTROPHILS % (MANUAL) 77 % (40-74)
[2018-06-17 08:45] LABS: ANISOCYTOSIS SLIGHT; RBC MORPHOLOGY COMMENT NORMAL
[2018-06-17 08:46] LABS: PLATELET ESTIMATE ADEQUATE; PLATELET MORPHOLOGY COMMENT NORMAL
[2018-06-17 09:00] VITALS: BP 120/75
[2018-06-17] MEDS: CEFTRIAXONE SOD 1 GM/NS 50 ML 50 ML IV SCH (10:01)
[2018-06-17] MEDS ORDERED: LEVOFLOXACIN 500 MG TAB PO SCH (11:00)
[2018-06-17 12:11] VITALS: BP 99/65
--- NOTE | 2018-06-17 12:38 | NUR ---
Called transfer center for [facility] [phone]. Spoke to Alyson Varghese who stated they don't have an accepting physician for this pt. Spoke to pt at bedside for choice to initiate transfer to another hospital. She stated she and her fiance Flaco spoke with Dr. Chadd Rubio yesterday evening and to Dr. Marti today regarding DC plan. Pt stated that she wants to go home on discharge. Does not want CM to initiate transfer to another hospital. Informed Dr. Marti.
--- NOTE | 2018-06-17 13:11 | Progress Note ---
DATE: 06/17/2018 Medicine Progress Note SUBJECTIVE: The patient is doing much better today. Her total bilirubin is now 19, much better than yesterday at 24. Hopefully, she will get much improved and possibly be discharged soon. She has been denied a few centers for transfers for liver transplantation evaluation. PHYSICAL EXAMINATION: VITAL SIGNS: Temperature is 97.2, pulse 91, respiratory rate is 17, blood pressure 120/75, pulse ox 99% on room air. GENERAL: Not in acute distress. Alert and oriented x3. Cooperative on examination. HEENT: Head is normocephalic and atraumatic. Eyes; pupils are equal, round, and reactive to light bilaterally. Extraocular movements are intact bilaterally. Throat, no evidence of erythema or exudates in the posterior pharynx. Has poor dentition. NECK: Supple. Good range of motion. PULMONARY: Clear to auscultation bilaterally. No wheezing, no rales, no rhonchi, no crackles appreciated. CARDIOVASCULAR: Positive S1, S2. No murmurs, rubs, or gallops appreciated. ABDOMEN: Soft, nontender, and nondistended to palpation. Bowel sounds present. MUSCULOSKELETAL: Strength is 5/5 throughout. No evidence of any muscle deficits on examination. No weakness appreciated. NEUROLOGICAL: Cranial nerves II through XII grossly intact. No evidence of any neurological deficits on exam. SKIN: Intact. Warm to touch. Good cap refill. PSYCHIATRIC: Normal affect and mood. EXTREMITIES: No edema. Good range of motion throughout. LABORATORY FINDINGS: Show white count is 7.2, hemoglobin 13.3, hematocrit 36, platelets of 175. Coagulation, none. Chemistry; sodium 140, potassium 3.1, chloride 98, bicarb 34, anion gap of 11, BUN is 11, creatinine is 0.6, glucose 85, calcium is 9.1, total bilirubin downtrended to 19 today, AST is 151, ALT 75, alkaline phosphatase 134, total bilirubin was 4.7, albumin is 2.2. Microbiology shows Enterococcus and E coli in which antibiotics will be changed. IMPRESSION: 1. Jaundice with worsening elevated total bilirubin, now downtrending total bilirubin 19. Has also admitted to alcohol abuse. 2. Hepatic steatosis from alcohol abuse. 3. Urinary tract infection, found to be Enterococcus and E coli, now sensitive to Levaquin. 4. Hypokalemia, improved . PLAN: At this time, total bilirubin decreased to 19. She has been denied two centers already for transfer to a liver transplantation evaluation. At this time, we will continue with same plan of care. Get a.m. labs. Change IV antibiotics to oral Levaquin for underlying urinary tract infection. GI is following very closely. Discussed case with nursing staff. MD CARLEEN Farris/URI /[id number]
--- NOTE | 2018-06-17 13:57 | NUR ---
Dr. Marti informed CM that he spoke with Dr. Chadd Rubio and he plans to discharge the pt. RN to call him for orders. Informed EDDIE Parham and asked him to call Dr. Marti.
[2018-06-17] MEDS: ENOXAPARIN 30 MG/0.3 ML SYR SC SCH (17:00)
[2018-06-17 17:10] VITALS: BP 108/67
--- NOTE | 2018-06-17 17:53 | NUR ---
CLEARED BY DR. TIJERINA FOR DISCHARGE.
--- NOTE | 2018-06-19 05:47 | Discharge Summary ---
FINAL DISCHARGE DIAGNOSES: 1. Alcoholic liver cirrhosis with worsening total bilirubin, but improving on discharge with underlying jaundice. 2. Hepatic steatosis from alcohol abuse. 3. Urinary tract infection. 4. Hypokalemia, resolved. 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 PHYSICAL EXAMINATION: VITAL SIGNS: Temperature is 98, pulse 81, respiratory rate is 18, blood pressure 108/67, and pulse ox 100% on room air. LABORATORY FINDINGS: Show white count 10.3, hemoglobin 13, hematocrit 36, platelets of 175. Coagulation; PT 14, INR 1, PTT 39.9. Chemistry; sodium 140, potassium 3.1, chloride 98, bicarb 34, anion gap of 11, BUN is 11, creatinine 0.6, glucose 85, calcium 9.1, total bilirubin on admission was 20, 17, 23, and 24 then downtrended to 19, AST is 151, ALT 75, alkaline phosphatase 134, total protein is 5.5. Urinalysis is concerning for UTI. Urine drug screen was negative. Salicylate negative. Acetaminophen negative. Immunology, LUNA was negative. Serology, hepatitis panel was negative. Microbiology, blood cultures negative. Urine cultures positive for E coli. IMAGING STUDIES: MRCP shows severe steatosis with steatohepatitis suspected. Hepatomegaly is seen. No MRI evidence of cirrhosis. No hepatic mass. No biliary ductal dilatation. No pancreatic ductal dilatation. No pancreas mass is seen. There is a spleen with large splenorenal shunt. No gallbladder abnormalities. Normal-sized spleen. Chest x-ray was negative. CT abdomen and pelvis shows hepatomegaly with severe diffuse hepatic steatosis. Large renal shunt, which may be portal hypertension. Severe emphysematous changes at the lung bases. Status post hysterectomy. HOSPITAL COURSE: A 53-year-old female, who came into the ED with worsening jaundice ongoing for the last several days prior to arrival to the ED. The patient was admitted and GI was consulted. Several serologies were performed showed no evidence of the etiology of her jaundice. It is likely due to underlying alcoholic cirrhosis. Chronic alcohol abuse leading to her jaundice. Her total bilirubin was elevated, but downtrended on the day of discharge. In further discussion with GI, it was best that the patient could be discharged home and to follow up very closely as an outpatient. Her total bilirubin was downtrending prior to being discharged. She was asymptomatic, no nausea, no vomiting, had no other complaints. We have tried transferring the patient to a liver transplant center, but has been denied by several hospitals. At this time, due to the fact that the patient is asymptomatic, doing well and just has jaundice with downtrending total bilirubin. It was felt that the patient can be discharged and we talked with the family at bedside and they verbalized understanding. In relation to her UTI, prescription was called in for Cipro in which she will continue for underlying urinary tract infection. On discharge, the patient was doing well with no other complaints. On the day of discharge, vital signs stable, labs reviewed and stable. The patient was seen, evaluated, examined thoroughly on the day of discharge. No other complaints. The patient verbalized understanding and agreed to plan of care to followup appointment as an outpatient with the primary care physician in 1 week and a GI specialist in 1 week time. The patient has been cleared for discharge by GI. MEDICATIONS: See med reconciliation form including Cipro 500 mg p.o. b.i.d. x7 days. DISPOSITION: Home. CONDITION: Stable. DIET: Heart healthy. In the event of any worsening symptoms, the patient was advised to come back to the ED for further evaluation. Discharge summary took greater than 35 minutes. MD CARLEEN Farris/URI /[id number]
== END 2018-06-17 18:16 | disposition home or self-care (01) | DRG 433 ==
LOC: ER 11:57 → ERHOLD 16:14 → IMCU 19:58 → MED/SURG2 06-15 14:08
PROVIDERS: ADMIT Internal Medicine; ATTEND Internal Medicine
DX: K70.30 Alcoholic cirrhosis of liver without ascites (principal); N30.01 Acute cystitis with hematuria; E87.6 Hypokalemia; F10.10 Alcohol abuse, uncomplicated; K76.0 Fatty (change of) liver, not elsewhere classified; Z88.5 Allergy status to narcotic agent; B96.20 Unspecified Escherichia coli [E. coli] as the cause of diseases classified elsewhere; B95.2 Enterococcus as the cause of diseases classified elsewhere
CPT/HCPCS: 36415; 71045; 74177; 74181; 80053; 80307; 80329; 81001; 82105; 82150; 82248; 82550; 82553; 82607; 82746; 83605; 83690; 83735; 84484; 85025; 85610; 85730; 86039; 86663; 86664; 86665; 87040; 87086; 87186; 93005; 99284; J0696; J1650; J2405; J2543; J2550; J2920; J3480; J7030; J7050; Q9967

== ENCOUNTER 2021-11-25 10:21 | Inpatient (IN) | payer MEDICARE, OTHER ==
[2021-11-25] VITALS (7 sets, daily range): BP systolic 80–117; BP diastolic 49–74
[~2021-11-25] VITALS: Ht 149.9 cm; Wt 37.7 kg
[2021-11-25 10:57] LABS: BASOPHILS # (AUTO) 0.2 (0.0-0.1); BASOPHILS % 1.5 % (0.0-1.0); EOSINOPHILS # (AUTO) 0.1 (0.0-0.4); EOSINOPHILS % 1.4 % (0.0-6.0); HEMATOCRIT 38.9 % (34.2-44.1); HEMOGLOBIN 14.4 g/dL (12.0-16.0); LYMPHOCYTES # (AUTO) 1.2 (1.0-3.2); LYMPHOCYTES % 11.6 % (18.0-39.1); MEAN CORPUSCULAR HEMOGLOBIN 31.9 pg (28-32); MEAN CORPUSCULAR VOLUME 86.3 fL (81-99); MONOCYTES % 9.2 % (4.4-11.3); NEUTROPHILS # (AUTO) 7.8 (2.1-6.9); NEUTROPHILS % 75.2 % (38.7-80.0); PLATELET COUNT 282 x10e3/uL (140-360); RED BLOOD COUNT 4.51 x10e6/uL (3.6-5.1); RED CELL DISTRIBUTION WIDTH 21.1 % (11.7-14.4)
[2021-11-25 11:01] LABS: INR 1.04; PROTHROMBIN TIME 14.5 seconds (11.9-14.5)
[2021-11-25 11:14] LABS: ALANINE AMINOTRANSFERASE 87 IU/L (0-55); ALBUMIN 2.4 g/dL (3.5-5.0); ALBUMIN/GLOBULIN RATIO 0.6 (0.8-2.0); ALKALINE PHOSPHATASE 234 IU/L (40-150); BLOOD UREA NITROGEN 6 mg/dL (7-26); BUN/CREATININE RATIO 5 (6-25); CALCIUM 8.7 mg/dL (8.4-10.2); CARBON DIOXIDE 26 mmol/L (22-29); CHLORIDE 101 mmol/L (98-107); CREATINE KINASE 44 IU/L (29-168); GLUCOSE 125 mg/dL (74-118); LIPASE 41 U/L (8-78); MAGNESIUM 2.2 MG/DL (1.3-2.1); SODIUM 139 mmol/L (136-145)
[2021-11-25] MEDS ORDERED: POTASSIUM CHLORIDE 20 MEQ TAB CR PO ONE (11:40)
[2021-11-25] MEDS: POTASSIUM CHLORIDE 10MEQ/100ML 100 ML IV SCH ×3 (11:57→14:30)
[2021-11-25] MEDS ORDERED: IOPAMIDOL 370 MG/ML 100 ML INFUS..BTL INJ ONE (12:12)
[2021-11-25 13:25] LABS: CLARITY,URINE SL CLOUDY (CLEAR); COLOR,URINE YELLOW (YELLOW); LEUKOCYTE ESTERASE ,URINE TRACE (NEGATIVE); NITRITE,URINE POSITIVE (NEGATIVE)
[2021-11-25 13:26] LABS: KETONES,URINE NEGATIVE (NEGATIVE); PROTEIN,URINE DIPSTICK NEGATIVE (NEGATIVE); URINE UROBILINOGEN 0.2 mg/dL (0.2 - 1)
[2021-11-25] MEDS ORDERED: SODIUM CHLORIDE 0.9% 1000ML 1,000 ML IV ONE (13:30)
[2021-11-25 13:41] LABS: EPITHELIAL CELLS,URINE MODERATE /LPF
[2021-11-25 13:42] LABS: BACTERIA,URINE MANY /HPF
[2021-11-25] MEDS: ONDANSETRON HCL INJ 2MG/ML 2ML 2 MG/ML VIAL IV PRN (13:43)
[2021-11-25 13:46] LABS: RBC,URINE 0-5 /HPF (0-5)
[2021-11-25] MEDS ORDERED: GADOBENATE DIMEGLUMINE 1 ML IV ONE (14:27)
[2021-11-25] MEDS ORDERED: MILK THISTLE175 M2 PO (14:34)
[2021-11-25] MEDS ORDERED: SEREVENT DISKU50 MCG INH (14:34)
[2021-11-25] MEDS ORDERED: CYCLOBENZAPRINE10 MG PO (14:34)
[2021-11-25] MEDS ORDERED: PROAIR HFA INH8.5 GM IH (14:34)
[2021-11-25] MEDS ORDERED: [UNRECOGNIZED DRUG - OTHER] PO (14:34)
[2021-11-25] MEDS ORDERED: METOPROLOL TARTRATE INJ 1 MG/ML VIAL IV PRN (14:45)
[2021-11-25] MEDS ORDERED: ALBUTEROL SULFATE HFA 8GM INHALATION AEROSOL INH PRN (14:45)
[2021-11-25] MEDS ORDERED: POLYETHYLENE GLYCOL 3350 17 GM PACK PO PRN (14:45)
[2021-11-25] MEDS ORDERED: SALMETEROL XINAFOATE IH PRN (14:45)
[2021-11-25] MEDS ORDERED: DOCUSATE SODIUM 100 MG CAP PO SCH (17:00)
[2021-11-25] MEDS: CHOLESTYRAMINE 4 GM PACKET PO SCH (17:44)
[2021-11-25] MEDS: FAMOTIDINE 20 MG/2 ML VIAL IV SCH (17:44)
[2021-11-25] MEDS ORDERED: POTASSIUM CHLORIDE 10MEQ/100ML 100 ML IV SCH (20:00)
[2021-11-25] MEDS: CYCLOBENZAPRINE HCL 10 MG TAB PO SCH (21:00)
[2021-11-26] VITALS (10 sets, daily range): BP systolic 87–99; BP diastolic 50–66
[2021-11-26] MEDS ORDERED: SODIUM CHLORIDE 0.9% 250ML 250 ML IV ONE ×2 (01:00→03:30)
[2021-11-26 04:59] LABS: BASOPHILS # (AUTO) 0.1 (0.0-0.1); BASOPHILS % 1.6 % (0.0-1.0); EOSINOPHILS # (AUTO) 0.3 (0.0-0.4); EOSINOPHILS % 3.5 % (0.0-6.0); HEMATOCRIT 29.8 % (34.2-44.1); HEMOGLOBIN 11.1 g/dL (12.0-16.0); LYMPHOCYTES # (AUTO) 1.3 (1.0-3.2); LYMPHOCYTES % 16.6 % (18.0-39.1); MEAN CORPUSCULAR HEMOGLOBIN 32.2 pg (28-32); MEAN CORPUSCULAR HGB CONC 37.2 g/dL (31-35); MEAN CORPUSCULAR VOLUME 86.4 fL (81-99); MONOCYTES # (AUTO) 0.7 (0.2-0.8); MONOCYTES % 9.2 % (4.4-11.3); NEUTROPHILS # (AUTO) 5.4 (2.1-6.9); NEUTROPHILS % 67.7 % (38.7-80.0); PLATELET COUNT 235 x10e3/uL (140-360); RED BLOOD COUNT 3.45 x10e6/uL (3.6-5.1)
[2021-11-26 05:20] LABS: ALBUMIN 1.7 g/dL (3.5-5.0); ALBUMIN/GLOBULIN RATIO 0.7 (0.8-2.0); ANION GAP 11.4 mmol/L (8-16); CALCIUM 7.3 mg/dL (8.4-10.2); CREATININE, SERUM 0.83 mg/dL (0.57-1.11)
[2021-11-26 05:27] LABS: POTASSIUM 2.4 mmol/L (3.5-5.1)
[2021-11-26 05:42] LABS: CHOLESTEROL 62 MD/DL (0-199); MAGNESIUM 1.8 MG/DL (1.3-2.1); PHOSPHORUS 1.3 MG/DL (2.3-4.7); TRIGLYCERIDES 169 MG/DL (0-149)
[2021-11-26 05:43] LABS: HDL CHOLESTEROL < 5 MG/DL (40-60); LDL CHOLESTEROL 23 MG/DL (60-130)
[2021-11-26 06:02] LABS: THYROID STIMULATING HORMONE 2.031 uIU/mL (0.350-4.940)
[2021-11-26] MEDS ORDERED: POTASSIUM CHLORIDE 20MEQ/100ML 100 ML IV ONE (06:30)
[2021-11-26] MEDS ORDERED: POTASSIUM CHLORIDE 20 MEQ TAB CR PO ONE ×3 (06:30→19:50)
[2021-11-26] MEDS ORDERED: SODIUM CHLORIDE 0.9% 1000ML 1,000 ML ONE (06:33)
[2021-11-26] MEDS: [UNRECOGNIZED DRUG - OTHER] PO SCH (09:00)
[2021-11-26] MEDS: CHOLESTYRAMINE 4 GM PACKET PO SCH ×2 (09:49→17:04)
[2021-11-26] MEDS: FAMOTIDINE 20 MG/2 ML VIAL IV SCH ×2 (09:49→17:04)
[2021-11-26] MEDS: MILK THISTLE SEED EXTRACT PO SCH (09:50)
[2021-11-26] MEDS ORDERED: POTASSIUM PHOSPHATE 20 MM in SODIUM CHLORIDE 0.9% 250ML 250 ML IV ONE (10:00)
[2021-11-26 10:06] LABS: MAGNESIUM 2.1 MG/DL (1.3-2.1); POTASSIUM 3.1 mmol/L (3.5-5.1)
[2021-11-26] MEDS ORDERED: DIPHENHYDRAMINE HCL INJ 50 MG/ML VIAL IV ONE (10:15)
[2021-11-26] MEDS ORDERED: DIPHENHYDRAMINE HCL INJ 50 MG/ML VIAL IV PRN (10:15)
[2021-11-26] MEDS: SODIUM CHLORIDE 0.9% 1000ML 1,000 ML IV SCH (16:23)
[2021-11-26] MEDS ORDERED: POTASSIUM PHOSPHATE 10 MM in SODIUM CHLORIDE 0.9% 250ML 250 ML IV ONE (19:50)
[2021-11-26] MEDS: CYCLOBENZAPRINE HCL 10 MG TAB PO SCH (20:09)
[2021-11-27] VITALS (7 sets, daily range): BP systolic 91–102; BP diastolic 58–65
[2021-11-27] MEDS: SODIUM CHLORIDE 0.9% 1000ML 1,000 ML IV SCH ×3 (00:59→21:07)
[2021-11-27] MEDS ORDERED: DIPHENOXYLATE/ATROPINE TAB PO ONE (02:00)
[2021-11-27 02:14] LABS: WBC,FECAL (FECAL LACTOFERRIN) POSITIVE (NEGATIVE)
[2021-11-27] MEDS ORDERED: VANCOMYCIN 250MG/5ML ORAL SOLN PO ONE (03:15)
[2021-11-27 05:20] LABS: BASOPHILS # (AUTO) 0.2 (0.0-0.1); BASOPHILS % 1.9 % (0.0-1.0); EOSINOPHILS # (AUTO) 0.3 (0.0-0.4); EOSINOPHILS % 4.2 % (0.0-6.0); HEMATOCRIT 29.6 % (34.2-44.1); LYMPHOCYTES # (AUTO) 1.5 (1.0-3.2); LYMPHOCYTES % 18.4 % (18.0-39.1); MEAN CORPUSCULAR HEMOGLOBIN 31.8 pg (28-32); MEAN CORPUSCULAR HGB CONC 37.2 g/dL (31-35); MEAN CORPUSCULAR VOLUME 85.5 fL (81-99); MONOCYTES # (AUTO) 0.8 (0.2-0.8); MONOCYTES % 10.6 % (4.4-11.3); NEUTROPHILS % 63.6 % (38.7-80.0); PLATELET COUNT 227 x10e3/uL (140-360); RED BLOOD COUNT 3.46 x10e6/uL (3.6-5.1); RED CELL DISTRIBUTION WIDTH 21.8 % (11.7-14.4)
[2021-11-27 05:47] LABS: ALANINE AMINOTRANSFERASE 57 IU/L (0-55); ALBUMIN 1.6 g/dL (3.5-5.0); ALBUMIN/GLOBULIN RATIO 0.6 (0.8-2.0); ALKALINE PHOSPHATASE 142 IU/L (40-150); ANION GAP 11.5 mmol/L (8-16); BLOOD UREA NITROGEN < 5 mg/dL (7-26); CALCIUM 7.2 mg/dL (8.4-10.2); CARBON DIOXIDE 18 mmol/L (22-29); CHLORIDE 117 mmol/L (98-107); CREATININE, SERUM 0.76 mg/dL (0.57-1.11); GLUCOSE 88 mg/dL (74-118); MAGNESIUM 1.7 MG/DL (1.3-2.1); PHOSPHORUS 1.7 MG/DL (2.3-4.7); POTASSIUM 3.5 mmol/L (3.5-5.1); SODIUM 143 mmol/L (136-145)
[2021-11-27 05:48] LABS: BUN/CREATININE RATIO 7 (6-25)
[2021-11-27] MEDS ORDERED: VANCOMYCIN 250MG/5ML ORAL SOLN PO SCH (06:00)
[2021-11-27] MEDS: FAMOTIDINE 20 MG/2 ML VIAL IV SCH ×2 (09:23→16:42)
[2021-11-27] MEDS: CHOLESTYRAMINE 4 GM PACKET PO SCH ×2 (09:24→16:42)
[2021-11-27] MEDS: [UNRECOGNIZED DRUG - OTHER] PO SCH (09:25)
[2021-11-27] MEDS: MILK THISTLE SEED EXTRACT PO SCH (09:25)
[2021-11-27] MEDS ORDERED: MAGNESIUM SULF 1GRAM/DEXTROSE 100 ML IV ONE (10:30)
[2021-11-27] MEDS ORDERED: POTASSIUM PHOSPHATE 20 MM in SODIUM CHLORIDE 0.9% 250ML 250 ML IV ONE (12:00)
[2021-11-27] MEDS: VANCOMYCIN HCL 125 MG CAPSULE PO SCH ×2 (16:42→23:50)
[2021-11-27] MEDS: CYCLOBENZAPRINE HCL 10 MG TAB PO SCH (20:30)
[2021-11-28] VITALS (7 sets, daily range): BP systolic 92–143; BP diastolic 45–60
[2021-11-28] MEDS ORDERED: DIPHENOXYLATE/ATROPINE TAB PO ONE (01:15)
[2021-11-28] MEDS: ONDANSETRON HCL INJ 2MG/ML 2ML 2 MG/ML VIAL IV PRN (01:36)
[2021-11-28 06:09] LABS: BASOPHILS # (AUTO) 0.1 (0.0-0.1); BASOPHILS % 1.9 % (0.0-1.0); EOSINOPHILS # (AUTO) 0.3 (0.0-0.4); EOSINOPHILS % 4.1 % (0.0-6.0); HEMATOCRIT 29.3 % (34.2-44.1); HEMOGLOBIN 10.8 g/dL (12.0-16.0); LYMPHOCYTES # (AUTO) 1.2 (1.0-3.2); LYMPHOCYTES % 17.4 % (18.0-39.1); MEAN CORPUSCULAR HEMOGLOBIN 32.5 pg (28-32); MEAN CORPUSCULAR HGB CONC 36.9 g/dL (31-35); MEAN CORPUSCULAR VOLUME 88.3 fL (81-99); MONOCYTES # (AUTO) 0.6 (0.2-0.8); MONOCYTES % 9.3 % (4.4-11.3); NEUTROPHILS # (AUTO) 4.6 (2.1-6.9); PLATELET COUNT 227 x10e3/uL (140-360); RED BLOOD COUNT 3.32 x10e6/uL (3.6-5.1); RED CELL DISTRIBUTION WIDTH 22.7 % (11.7-14.4)
[2021-11-28] MEDS: VANCOMYCIN HCL 125 MG CAPSULE PO SCH ×3 (06:24→17:32)
[2021-11-28 06:30] LABS: ALANINE AMINOTRANSFERASE 55 IU/L (0-55); ALBUMIN 1.5 g/dL (3.5-5.0); ALBUMIN/GLOBULIN RATIO 0.6 (0.8-2.0); ALKALINE PHOSPHATASE 158 IU/L (40-150); ANION GAP 10.2 mmol/L (8-16); BLOOD UREA NITROGEN < 5 mg/dL (7-26); CARBON DIOXIDE 17 mmol/L (22-29); CHLORIDE 117 mmol/L (98-107); CREATININE, SERUM 0.73 mg/dL (0.57-1.11); GLUCOSE 82 mg/dL (74-118); MAGNESIUM 1.9 MG/DL (1.3-2.1); PHOSPHORUS 2.3 MG/DL (2.3-4.7); POTASSIUM 3.2 mmol/L (3.5-5.1); SODIUM 141 mmol/L (136-145)
[2021-11-28 06:37] LABS: BUN/CREATININE RATIO 7 (6-25)
[2021-11-28 06:39] LABS: CALCIUM 6.8 mg/dL (8.4-10.2)
[2021-11-28] MEDS: FAMOTIDINE 20 MG/2 ML VIAL IV SCH ×2 (09:14→17:31)
[2021-11-28] MEDS: SODIUM CHLORIDE 0.9% 1000ML 1,000 ML IV SCH ×3 (09:14→23:36)
[2021-11-28] MEDS: CHOLESTYRAMINE 4 GM PACKET PO SCH ×2 (09:15→17:32)
[2021-11-28] MEDS: [UNRECOGNIZED DRUG - OTHER] PO SCH (09:15)
[2021-11-28] MEDS: MILK THISTLE SEED EXTRACT PO SCH (09:15)
[2021-11-28] MEDS ORDERED: POTASSIUM CHLORIDE 20 MEQ TAB CR PO ONE (18:25)
[2021-11-28] MEDS: CYCLOBENZAPRINE HCL 10 MG TAB PO SCH (21:00)
[2021-11-29] VITALS (8 sets, daily range): BP systolic 96–114; BP diastolic 57–73
[2021-11-29] MEDS: VANCOMYCIN HCL 125 MG CAPSULE PO SCH ×4 (00:26→17:55)
[2021-11-29] MEDS ORDERED: DIPHENOXYLATE/ATROPINE TAB PO ONE (00:30)
[2021-11-29 06:13] LABS: BASOPHILS # (AUTO) 0.2 (0.0-0.1); BASOPHILS % 1.9 % (0.0-1.0); EOSINOPHILS # (AUTO) 0.3 (0.0-0.4); EOSINOPHILS % 3.9 % (0.0-6.0); HEMATOCRIT 31.9 % (34.2-44.1); HEMOGLOBIN 11.2 g/dL (12.0-16.0); LYMPHOCYTES # (AUTO) 1.1 (1.0-3.2); LYMPHOCYTES % 14.2 % (18.0-39.1); MEAN CORPUSCULAR HEMOGLOBIN 32.3 pg (28-32); MEAN CORPUSCULAR HGB CONC 35.1 g/dL (31-35); MEAN CORPUSCULAR VOLUME 91.9 fL (81-99); MONOCYTES # (AUTO) 0.8 (0.2-0.8); MONOCYTES % 9.8 % (4.4-11.3); NEUTROPHILS # (AUTO) 5.4 (2.1-6.9); NEUTROPHILS % 68.9 % (38.7-80.0); PLATELET COUNT 208 x10e3/uL (140-360); RED BLOOD COUNT 3.47 x10e6/uL (3.6-5.1); RED CELL DISTRIBUTION WIDTH 23.9 % (11.7-14.4)
[2021-11-29 06:39] LABS: ANION GAP 10.7 mmol/L (8-16); BLOOD UREA NITROGEN < 5 mg/dL (7-26); CALCIUM 7.3 mg/dL (8.4-10.2); CARBON DIOXIDE 16 mmol/L (22-29); CHLORIDE 119 mmol/L (98-107); CREATININE, SERUM 0.73 mg/dL (0.57-1.11); GLUCOSE 99 mg/dL (74-118); MAGNESIUM 1.8 MG/DL (1.3-2.1); POTASSIUM 3.7 mmol/L (3.5-5.1); SODIUM 142 mmol/L (136-145)
[2021-11-29 06:44] LABS: BUN/CREATININE RATIO 7 (6-25)
[2021-11-29] MEDS: [UNRECOGNIZED DRUG - OTHER] PO SCH (09:00)
[2021-11-29] MEDS: FAMOTIDINE 20 MG/2 ML VIAL IV SCH ×2 (09:44→17:00)
[2021-11-29] MEDS: CHOLESTYRAMINE 4 GM PACKET PO SCH ×2 (09:44→17:00)
[2021-11-29] MEDS: MILK THISTLE SEED EXTRACT PO SCH (09:45)
[2021-11-29] MEDS: SODIUM CHLORIDE 0.9% 1000ML 1,000 ML IV SCH (14:07)
[2021-11-29] MEDS: CYCLOBENZAPRINE HCL 10 MG TAB PO SCH (20:57)
[2021-11-30] VITALS (7 sets, daily range): BP systolic 89–103; BP diastolic 55–70
[2021-11-30] MEDS: VANCOMYCIN HCL 125 MG CAPSULE PO SCH ×4 (00:38→17:00)
[2021-11-30] MEDS: SODIUM CHLORIDE 0.9% 1000ML 1,000 ML IV SCH (06:26)
[2021-11-30 06:48] LABS: BASOPHILS # (AUTO) 0.1 (0.0-0.1); BASOPHILS % 1.6 % (0.0-1.0); EOSINOPHILS # (AUTO) 0.3 (0.0-0.4); EOSINOPHILS % 3.3 % (0.0-6.0); HEMATOCRIT 29.8 % (34.2-44.1); HEMOGLOBIN 10.5 g/dL (12.0-16.0); LYMPHOCYTES # (AUTO) 1.2 (1.0-3.2); LYMPHOCYTES % 13.8 % (18.0-39.1); MEAN CORPUSCULAR HEMOGLOBIN 31.7 pg (28-32); MEAN CORPUSCULAR HGB CONC 35.2 g/dL (31-35); MONOCYTES # (AUTO) 0.9 (0.2-0.8); MONOCYTES % 10.2 % (4.4-11.3); NEUTROPHILS % 69.9 % (38.7-80.0); PLATELET COUNT 223 x10e3/uL (140-360); RED BLOOD COUNT 3.31 x10e6/uL (3.6-5.1); RED CELL DISTRIBUTION WIDTH 23.2 % (11.7-14.4)
[2021-11-30 07:57] LABS: ANION GAP 12.2 mmol/L (8-16); BLOOD UREA NITROGEN < 5 mg/dL (7-26); CALCIUM 7.7 mg/dL (8.4-10.2); CARBON DIOXIDE 16 mmol/L (22-29); CHLORIDE 117 mmol/L (98-107); CREATININE, SERUM 0.71 mg/dL (0.57-1.11); GLUCOSE 86 mg/dL (74-118); POTASSIUM 3.2 mmol/L (3.5-5.1); SODIUM 142 mmol/L (136-145)
[2021-11-30 08:00] LABS: BUN/CREATININE RATIO 7 (6-25)
[2021-11-30] MEDS: [UNRECOGNIZED DRUG - OTHER] PO SCH (09:00)
[2021-11-30] MEDS: CHOLESTYRAMINE 4 GM PACKET PO SCH ×2 (09:02→16:48)
[2021-11-30] MEDS: FAMOTIDINE 20 MG/2 ML VIAL IV SCH ×2 (09:02→16:48)
[2021-11-30] MEDS: MILK THISTLE SEED EXTRACT PO SCH (09:20)
[2021-11-30] MEDS ORDERED: POTASSIUM CHLORIDE 20 MEQ TAB CR PO ONE (10:00)
[2021-11-30] MEDS: ONDANSETRON HCL INJ 2MG/ML 2ML 2 MG/ML VIAL IV PRN (16:56)
[2021-11-30] MEDS ORDERED: SODIUM CHLORIDE 0.9% 1000ML 1,000 ML IV SCH (17:45)
[2021-11-30] MEDS: CYCLOBENZAPRINE HCL 10 MG TAB PO SCH (21:00)
[2021-12-01] VITALS (8 sets, daily range): BP systolic 92–100; BP diastolic 51–65
[2021-12-01] MEDS ORDERED: DIPHENOXYLATE/ATROPINE TAB PO NR (00:15)
[2021-12-01 05:32] LABS: BASOPHILS # (AUTO) 0.1 (0.0-0.1); BASOPHILS % 1.5 % (0.0-1.0); EOSINOPHILS # (AUTO) 0.2 (0.0-0.4); EOSINOPHILS % 2.4 % (0.0-6.0); HEMATOCRIT 32.7 % (34.2-44.1); HEMOGLOBIN 11.6 g/dL (12.0-16.0); LYMPHOCYTES # (AUTO) 1.6 (1.0-3.2); LYMPHOCYTES % 16.4 % (18.0-39.1); MEAN CORPUSCULAR HGB CONC 35.5 g/dL (31-35); MEAN CORPUSCULAR VOLUME 90.3 fL (81-99); MONOCYTES % 10.9 % (4.4-11.3); NEUTROPHILS # (AUTO) 6.5 (2.1-6.9); NEUTROPHILS % 67.9 % (38.7-80.0); PLATELET COUNT 237 x10e3/uL (140-360); RED BLOOD COUNT 3.62 x10e6/uL (3.6-5.1); RED CELL DISTRIBUTION WIDTH 23.7 % (11.7-14.4)
[2021-12-01] MEDS: METOCLOPRAMIDE HCL 10 MG/2ML VIAL IV SCH ×5 (05:34→23:09)
[2021-12-01] MEDS: VANCOMYCIN HCL 125 MG CAPSULE PO SCH ×5 (05:34→23:10)
[2021-12-01 05:51] LABS: ALANINE AMINOTRANSFERASE 63 IU/L (0-55); ALBUMIN 1.5 g/dL (3.5-5.0); ALBUMIN/GLOBULIN RATIO 0.5 (0.8-2.0); ALKALINE PHOSPHATASE 155 IU/L (40-150); ANION GAP 11.2 mmol/L (8-16); BLOOD UREA NITROGEN < 5 mg/dL (7-26); CALCIUM 7.6 mg/dL (8.4-10.2); CARBON DIOXIDE 17 mmol/L (22-29); CHLORIDE 118 mmol/L (98-107); CREATININE, SERUM 0.75 mg/dL (0.57-1.11); GLUCOSE 75 mg/dL (74-118); POTASSIUM 3.2 mmol/L (3.5-5.1); SODIUM 143 mmol/L (136-145)
[2021-12-01 05:55] LABS: BUN/CREATININE RATIO 7 (6-25)
[2021-12-01] MEDS: CHOLESTYRAMINE 4 GM PACKET PO SCH ×2 (08:01→14:43)
[2021-12-01] MEDS: MILK THISTLE SEED EXTRACT PO SCH (09:00)
[2021-12-01] MEDS: [UNRECOGNIZED DRUG - OTHER] PO SCH (09:00)
[2021-12-01] MEDS: DIPHENOXYLATE/ATROPINE TAB PO SCH (09:39)
[2021-12-01] MEDS ORDERED: POTASSIUM CHLORIDE 20 MEQ TAB CR PO ONE (10:00)
[2021-12-01] MEDS ORDERED: LACTOBACILLUS ACIDOPHILUS CAPSULE PO ONE (10:00)
[2021-12-01] MEDS: LACTOBACILLUS ACIDOPHILUS CAPSULE PO SCH ×2 (17:40→20:42)
[2021-12-01] MEDS: CYCLOBENZAPRINE HCL 10 MG TAB PO SCH (19:42)
[2021-12-02] VITALS (7 sets, daily range): BP systolic 90–105; BP diastolic 52–65
[2021-12-02 05:59] LABS: BASOPHILS # (AUTO) 0.1 (0.0-0.1); BASOPHILS % 1.7 % (0.0-1.0); EOSINOPHILS # (AUTO) 0.3 (0.0-0.4); HEMATOCRIT 27.7 % (34.2-44.1); HEMOGLOBIN 10.3 g/dL (12.0-16.0); LYMPHOCYTES # (AUTO) 1.3 (1.0-3.2); LYMPHOCYTES % 16.6 % (18.0-39.1); MEAN CORPUSCULAR HEMOGLOBIN 32.5 pg (28-32); MEAN CORPUSCULAR HGB CONC 37.2 g/dL (31-35); MEAN CORPUSCULAR VOLUME 87.4 fL (81-99); MONOCYTES # (AUTO) 1.1 (0.2-0.8); MONOCYTES % 13.9 % (4.4-11.3); NEUTROPHILS % 62.8 % (38.7-80.0); PLATELET COUNT 226 x10e3/uL (140-360); RED BLOOD COUNT 3.17 x10e6/uL (3.6-5.1); RED CELL DISTRIBUTION WIDTH 23.4 % (11.7-14.4)
[2021-12-02] MEDS: METOCLOPRAMIDE HCL 10 MG/2ML VIAL IV SCH ×2 (06:12→11:34)
[2021-12-02] MEDS: VANCOMYCIN HCL 125 MG CAPSULE PO SCH ×3 (06:12→17:25)
[2021-12-02 06:25] LABS: ALANINE AMINOTRANSFERASE 54 IU/L (0-55); ALKALINE PHOSPHATASE 137 IU/L (40-150); ANION GAP 10.5 mmol/L (8-16); BLOOD UREA NITROGEN < 5 mg/dL (7-26); CALCIUM 7.5 mg/dL (8.4-10.2); CARBON DIOXIDE 19 mmol/L (22-29); CHLORIDE 116 mmol/L (98-107); CREATININE, SERUM 0.81 mg/dL (0.57-1.11); GLUCOSE 73 mg/dL (74-118); POTASSIUM 3.5 mmol/L (3.5-5.1); SODIUM 142 mmol/L (136-145)
[2021-12-02 06:29] LABS: BUN/CREATININE RATIO 6 (6-25)
[2021-12-02 06:49] LABS: ALBUMIN 1.4 g/dL (3.5-5.0); ALBUMIN/GLOBULIN RATIO 0.6 (0.8-2.0)
[2021-12-02] MEDS: [UNRECOGNIZED DRUG - OTHER] PO SCH (09:00)
[2021-12-02] MEDS: LACTOBACILLUS ACIDOPHILUS CAPSULE PO SCH ×3 (09:28→20:59)
[2021-12-02] MEDS: CHOLESTYRAMINE 4 GM PACKET PO SCH ×2 (09:28→17:25)
[2021-12-02] MEDS: DIPHENOXYLATE/ATROPINE TAB PO SCH (09:28)
[2021-12-02] MEDS: MILK THISTLE SEED EXTRACT PO SCH (09:31)
[2021-12-02] MEDS ORDERED: METOCLOPRAMIDE HCL 10 MG TAB PO SCH (12:00)
[2021-12-02] MEDS: LEVOFLOXACIN 500 MG TAB PO SCH (12:14)
[2021-12-02] MEDS ORDERED: ONDANSETRON HCL 4 MG ORAL DISINTEGRATING TAB PO PRN (15:45)
[2021-12-02] MEDS: METOCLOPRAMIDE HCL 10 MG TAB PO SCH (17:25)
[2021-12-02] MEDS: CYCLOBENZAPRINE HCL 10 MG TAB PO SCH (21:00)
[2021-12-03] VITALS: BP 109/62
[2021-12-03] MEDS: METOCLOPRAMIDE HCL 10 MG TAB PO SCH ×3 (00:06→12:31)
[2021-12-03] MEDS: VANCOMYCIN HCL 125 MG CAPSULE PO SCH ×3 (00:06→12:31)
[2021-12-03 04:00] VITALS: BP 91/54
[2021-12-03] MEDS: [UNRECOGNIZED DRUG - OTHER] PO SCH (07:20)
[2021-12-03] MEDS ORDERED: PANTOPRAZOLE SOD 40 MG TABEC PO SCH (07:30)
[2021-12-03 08:02] VITALS: BP 93/58
[2021-12-03 08:09] VITALS: BP 93/58
[2021-12-03] MEDS: DIPHENOXYLATE/ATROPINE TAB PO SCH (08:13)
[2021-12-03] MEDS: LACTOBACILLUS ACIDOPHILUS CAPSULE PO SCH ×2 (08:13→14:23)
[2021-12-03] MEDS: CHOLESTYRAMINE 4 GM PACKET PO SCH (08:13)
[2021-12-03] MEDS: MILK THISTLE SEED EXTRACT PO SCH (08:17)
[2021-12-03 12:04] VITALS: BP 91/50
[2021-12-03] MEDS ORDERED: LOMOTIL TABLET1 EACH PO (12:27)
[2021-12-03] MEDS ORDERED: CHOLESTYRAMINE L4 GM PO (12:27)
[2021-12-03] MEDS ORDERED: LEVOFLOXACIN250 MG PO (12:27)
[2021-12-03] MEDS ORDERED: VANCOMYCIN HCL125 MG PO (12:27)
[2021-12-03] MEDS ORDERED: METOCLOPRAMIDE10 MG PO (12:27)
[2021-12-03] MEDS ORDERED: ACIDOPHILUS1 EAC1 PO (12:27)
[2021-12-03] MEDS: LEVOFLOXACIN 500 MG TAB PO SCH (12:34)
[2021-12-03 15:35] VITALS: BP 116/68
== END 2021-12-03 17:43 | disposition home or self-care (01) | DRG 433 ==
LOC: ER 10:24 → ERHOLD 13:23 → MED/SURG2 16:44
PROVIDERS: ADMIT Internal Medicine; ATTEND Internal Medicine
PROC: 02HV33Z Insertion of Infusion Device into Superior Vena Cava, Percutaneous Approach (ICD-10-PCS; principal; 2021-11-26)
DX: K70.30 Alcoholic cirrhosis of liver without ascites (principal); A04.72 Enterocolitis due to Clostridium difficile, not specified as recurrent; N39.0 Urinary tract infection, site not specified; K83.09 Other cholangitis; C22.0 Liver cell carcinoma; E83.39 Other disorders of phosphorus metabolism; E87.6 Hypokalemia; F10.21 Alcohol dependence, in remission; Z86.16 Personal history of COVID-19; I10 Essential (primary) hypertension; J44.9 Chronic obstructive pulmonary disease, unspecified; E83.42 Hypomagnesemia; F41.9 Anxiety disorder, unspecified; B96.20 Unspecified Escherichia coli [E. coli] as the cause of diseases classified elsewhere; F17.210 Nicotine dependence, cigarettes, uncomplicated; Z82.49 Family history of ischemic heart disease and other diseases of the circulatory system; Z80.3 Family history of malignant neoplasm of breast; Z83.3 Family history of diabetes mellitus; Z88.8 Allergy status to other drugs, medicaments and biological substances; Z88.5 Allergy status to narcotic agent; Z20.822 Contact with and (suspected) exposure to COVID-19
CPT/HCPCS: 0223U; 36415; 74177; 74183; 80048; 80053; 80061; 81001; 82105; 82248; 82378; 82550; 82553; 83036; 83630; 83690; 83735; 84100; 84132; 84155; 84443; 84484; 85025; 85610; 85730; 86039; 86255; 86301; 86304; 87045; 87086; 87177; 87186; 87324; 87449; 94799; 96361; 99251; 99284; J0696; J1200; J2405; J2765; J3475; J3480; J7030; J7050; Q9967

== ENCOUNTER → 2023-09-21 | Day surgery (SDC) | payer MEDICARE ==
[~2023-09-21] MED LIST: ACIDOPHILUS1 EAC1 PO; CHOLESTYRAMINE L4 GM PO; CYCLOBENZAPRINE10 MG PO; DETROL LA4 MG PO; FENTANYL CITRATE/PF 100MCG/2 ML INJ ONE; HYDROCODON-ACE1 EAC9 PO; HYDROXYZINE HCL25 MG PO; IOPAMIDOL 610MG/1ML 300 MG/ML VIAL IV ONE; KEFLEX125 MG/5 M PO; LACTULOSE10 GM/152 PO; LACTULOSE20 GM/30 M PO; LEVOFLOXACIN250 MG PO; LIDOCAINE HCL 2% LOCAL INJ 5 ML SDV VIAL INJ ONE; LOMOTIL TABLET1 EACH PO; METOCLOPRAMIDE10 MG PO; MILK THISTLE175 M2 PO; ONDANSETRON HCL INJ 2MG/ML 2ML 2 MG/ML VIAL ONE; ONDANSETRON ODT4 MG PO; PHENYLEPHRINE HCL 1% 10 MG/ML VIAL ONE; POTASSIUM CHLO20 MEQ PO; PROAIR HFA INH8.5 GM IH; PROPOFOL IV EMULSION 10 MG/ML 20 ML VIAL ONE; SEREVENT DISKU50 MCG INH; SEVOFLURANE INHAL SOLN 250 ML PEN BTL ONE; VANCOMYCIN HCL125 MG PO; [UNRECOGNIZED DRUG - OTHER] PO; vitamin d3 PO; vitamin e PO
[2023-09-21 06:48] LABS: BASOPHILS # (AUTO) 0.1 (0.0-0.1); BASOPHILS % 1.6 % (0.0-1.0); EOSINOPHILS # (AUTO) 0.2 (0.0-0.4); EOSINOPHILS % 3.1 % (0.0-6.0); HEMATOCRIT 26.6 % (34.2-44.1); HEMOGLOBIN 8.1 g/dL (12.0-16.0); LYMPHOCYTES % 29.3 % (18.0-39.1); MEAN CORPUSCULAR HEMOGLOBIN 26.6 pg (28-32); MEAN CORPUSCULAR HGB CONC 30.5 g/dL (31-35); MEAN CORPUSCULAR VOLUME 87.5 fL (81-99); MONOCYTES # (AUTO) 0.8 (0.2-0.8); NEUTROPHILS # (AUTO) 3.7 (2.1-6.9); NEUTROPHILS % 54.7 % (38.7-80.0); PLATELET COUNT 222 x10e3/uL (140-360); RED BLOOD COUNT 3.04 x10e6/uL (3.6-5.1); RED CELL DISTRIBUTION WIDTH 16.6 % (11.7-14.4)
[2023-09-21 07:05] LABS: ANION GAP 12.2 mmol/L (8-16); CREATININE, SERUM 0.99 mg/dL (0.57-1.11); POTASSIUM 4.2 mmol/L (3.5-5.1)
[2023-09-21] MEDS: PHENAZOPYRIDINE HCL 100 MG TAB ONE (08:20)
[2023-09-21] MEDS: HYDROCODONE/APAP 5MG-325MG TAB ONE (09:00)
[2023-09-21 09:15] VITALS: BP 136/82; PULSE 98; RESP 16; O2SAT 99
[2023-09-21] MEDS: LACTATED RINGER'S 1,000 ML ONE (09:58)
[2023-09-21] MEDS: GENTAMICIN 80MG/NS 100 ML 200 ML IV ONE (09:58)
== END | disposition home or self-care (01) ==
LOC: OR 05:45
PROVIDERS: ATTEND Urology
DX: N35.92 Unspecified urethral stricture, female (principal); Z46.6 Encounter for fitting and adjustment of urinary device; N95.2 Postmenopausal atrophic vaginitis; N81.10 Cystocele, unspecified; J45.909 Unspecified asthma, uncomplicated; K74.60 Unspecified cirrhosis of liver; R00.0 Tachycardia, unspecified; Z87.442 Personal history of urinary calculi; Z79.899 Other long term (current) drug therapy
CPT/HCPCS: 36415; 52281; 74420; 80048; 84550; 85025; 87086; 87186; 93005; C1769; J1580; J2001; J2371; J2405; J2704; J3010; J7121; Q9967